=== PATIENT | male | born 1985 | race Caucasian/White ===

== ENCOUNTER 2017-03-06 12:56 | Emergency (ER) | payer SELFPAY ==
[~2017-03-06] VITALS: Ht 170.2 cm; Wt 72.7 kg
[~2017-03-06 12:56] MED LIST: FLEXERIL 1010 MG/TAB PO; NO HOME MEDICATIONS; NORCO 325 MG-51 TAB PO; SULFA
[2017-03-06 12:58] VITALS: BP 144/79; TEMP 98
[2017-03-06] MEDS ORDERED: BACTRIM DS 8001 TAB PO (13:58)
[2017-03-06] MEDS ORDERED: CEPHALEXIN500 M1 PO (13:58)
[2017-03-06 14:06] VITALS: PULSE 80
== END 2017-03-06 14:06 | disposition home or self-care (01) ==
LOC: COL.ER 12:56
DX: R21 Rash and other nonspecific skin eruption (principal); F17.210 Nicotine dependence, cigarettes, uncomplicated; Z90.89 Acquired absence of other organs